=== PATIENT | male | born 1940 | race Caucasian/White ===

== ENCOUNTER 2021-02-03 09:16 | Day surgery (SDC) | payer MEDICARE ==
[2021-02-03] VITALS (15 sets, daily range): BP systolic 115–166; BP diastolic 63–77
[~2021-02-03] VITALS: Ht 190.5 cm; Wt 76.0 kg
[2021-02-03] MEDS ORDERED: nitroGLYCERIN 0.4mg SUBLingual tab SL PRN (09:50)
[2021-02-03] MEDS ORDERED: diphenhydrAMINE 25mg capsule PO PRN (09:50)
[2021-02-03] MEDS ORDERED: LORazepam 0.5 MG tablet PO PRN (09:50)
[2021-02-03] MEDS ORDERED: normal saline 1,000 ML IV SCH (09:50)
[2021-02-03] MEDS ORDERED: SIMV10TA2 PO (09:58)
[2021-02-03] MEDS ORDERED: MULT-1085 PO (09:58)
[2021-02-03] MEDS ORDERED: AMLO10TA4 PO (09:58)
[2021-02-03] MEDS ORDERED: POTA10TA10 PO (09:58)
[2021-02-03] MEDS ORDERED: ASPI-1265 PO (09:58)
[2021-02-03] MEDS ORDERED: METO-477 PO (09:59)
[2021-02-03] MEDS ORDERED: FEXO-124 PO (09:59)
[2021-02-03] MEDS ORDERED: iohexol 350 MG/ML 50ML vial IV ONE ×3 (11:06→11:53)
[2021-02-03] MEDS ORDERED: LIDOcaine 1% (10mg/ml)w/preservative injection 20ml MDV ONE (11:06)
[2021-02-03] MEDS ORDERED: fentaNYL/PF 50MCG/1 ML 2ML syringe ONE (11:06)
[2021-02-03] MEDS ORDERED: iohexol 350MG/ML 100ml bottle IV ONE (11:06)
[2021-02-03] MEDS ORDERED: midazolam 1 mg/ML 2ml injection ONE (11:06)
[2021-02-03] MEDS ORDERED: OXAZEpam 15mg capsule PO PRN (12:50)
[2021-02-03] MEDS ORDERED: normal saline 1000ml 1,000 ML IV SCH (12:50)
[2021-02-03] MEDS ORDERED: ondansetron/PF 4mg/2ml inj IV PRN (12:50)
[2021-02-03] MEDS ORDERED: HYDROcodone/acetaminophen 5mg/325mg tablet PO PRN (12:50)
[2021-02-03] MEDS ORDERED: proCHLORperazine 10 MG/2 ml inj IV PRN (12:50)
[2021-02-03] MEDS ORDERED: HYDROcodone/acetaminophen 10/325mg tab PO PRN (12:50)
== END 2021-02-03 18:10 | disposition home or self-care (01) ==
LOC: SSTAY O 09:16
PROVIDERS: ATTEND Internal Medicine Cardiovascular Disease
DX: I25.10 Atherosclerotic heart disease of native coronary artery without angina pectoris (principal); R94.39 Abnormal result of other cardiovascular function study; I10 Essential (primary) hypertension; I44.7 Left bundle-branch block, unspecified; R06.02 Shortness of breath
CPT/HCPCS: 75630; 75716; 93005; 93459; C1760; C1769; J1644; J2001; J2250; J3010; J7030; Q0163; Q9967; 99152; 99153; A4620; A6258

== ENCOUNTER 2022-10-17 10:16 | Outpatient (CLI) | payer MEDICARE ==
[~2022-10-17 10:16] MED LIST: AMIO100T4 PO; AMLO10TA4 PO; ASPI-1265 PO; CHOL20004 PO; HYDR25TA4 PO; MAGN200T PO; METO-411 PO; POTA-188 PO; SIMV-341 PO
[2022-10-17] MEDS ORDERED: iohexol 350MG/ML 100ml bottle IV ONE (10:50)
[2022-10-17] MEDS ORDERED: iohexol 350 MG/ML 50ML vial IV ONE (10:51)
[2022-10-17 11:04] LABS: ALBUMIN 3.7 G/DL (3.4-5.0); ANION GAP 9 (8-16); BLOOD UREA NITROGEN 20 MG/DL (7-18); BUN/CREATININE RATIO 16.3 (5.4-32.0); CHLORIDE 105 MMOL/L (99-107); CHOL/HDL RATIO 2.5 (0.00-4.99); CHOLESTEROL 184 MG/DL (0-200); CREATININE 1.23 MG/DL (0.60-1.10); GLUCOSE 103 MG/DL (70-104); HDL CHOLESTEROL 73 MG/DL (35-60); LDL CHOLESTEROL 95 MG/DL (50-100); SODIUM 139 MMOL/L (135-145); TOTAL CARBON DIOXIDE 24.9 MMOL/L (24-32); TRIGLYCERIDES 135 MG/DL (20-135); eGFR 56 ML/MIN
== END 2022-10-17 23:59 | disposition home or self-care (01) ==
LOC: RAD 10:16
PROVIDERS: ATTEND Internal Medicine Cardiovascular Disease
DX: K57.30 Diverticulosis of large intestine without perforation or abscess without bleeding (principal); I71.40 Abdominal aortic aneurysm, without rupture, unspecified; I70.0 Atherosclerosis of aorta; I70.203 Unspecified atherosclerosis of native arteries of extremities, bilateral legs; M16.0 Bilateral primary osteoarthritis of hip; M47.815 Spondylosis without myelopathy or radiculopathy, thoracolumbar region; N28.1 Cyst of kidney, acquired; I51.7 Cardiomegaly; I25.10 Atherosclerotic heart disease of native coronary artery without angina pectoris; N40.0 Benign prostatic hyperplasia without lower urinary tract symptoms; K40.90 Unilateral inguinal hernia, without obstruction or gangrene, not specified as recurrent
CPT/HCPCS: 36415; 75635; 80048; 80061; J3490; J7030; Q9967